=== PATIENT | male | born 1990 | race Two or more races ===

== ENCOUNTER 2017-09-24 17:48 | Emergency (ER) | payer SELFPAY ==
[~2017-09-24] VITALS: Ht 170.2 cm; Wt 76.7 kg
[2017-09-24 17:50] VITALS: BP 141/87
[2017-09-24] MEDS ORDERED: AZITHROMYCIN 500 MG TABLET PO ONE (19:00)
[2017-09-24] MEDS ORDERED: CEFTRIAXONE 250 MG IM ONE (19:00)
[2017-09-24 20:22] LABS: MICROSCOPIC NOT IND
[2017-09-24 20:25] LABS: CULTURE INDICATED? NO
[2017-09-24] MEDS ORDERED: AZITHROMYCIN 500 MG TABLET ONE (20:33)
[2017-09-24] MEDS ORDERED: CEFTRIAXONE 250 MG ONE (20:33)
[2017-09-24] MEDS ORDERED: LIDOCAINE-MPF 1%, 2ML ONE (20:33)
== END 2017-09-24 20:58 | disposition home or self-care (01) ==
LOC: ED 19:00
DX: R30.0 Dysuria (principal)
CPT/HCPCS: 81003; 96372; 99283; J0696